=== PATIENT | male | born 1935 | race Caucasian/White ===

== ENCOUNTER → 2017-10-29 | Emergency (ER) | payer OTHER ==
[~2017-10-29] VITALS: Ht 180.3 cm; Wt 64.4 kg
[~2017-10-29] MED LIST: AMLODIPINE BESY10 MG PO; AMOX TR-K CLV 81 TAB; ASPIR 8181 MG; ASPIR 8181 MG PO; ATENOLOL25 MG; AVAPRO300 MG; AVAPRO300 MG PO; CARdura 2MG TABLET PO; CILOSTAZOL100 MG; CLOPIDOGREL BIS75 MG; GLUCOTROL10 MG; JANUVIA25 MG; NORVASC5 MG; PLAVIX75 MG; PLAVIX75 MG PO; SIMVASTATIN40 MG; SIMVASTATIN40 MG PO; TENORMIN25 MG; TOPROL XL50 M1 PO; TRAZODONE HCL100 MG; WELLBUTRIN75 MG
== END | disposition home or self-care (01) ==
LOC: ER 20:24
DX: E11.649 Type 2 diabetes mellitus with hypoglycemia without coma (principal); R20.0 Anesthesia of skin; G30.9 Alzheimer's disease, unspecified; F02.80 Dementia in other diseases classified elsewhere, unspecified severity, without behavioral disturbance, psychotic disturbance, mood disturbance, and anxiety

== ENCOUNTER 2017-10-31 08:55 | Inpatient (IN) | payer OTHER ==
[~2017-10-31] VITALS: Ht 177.8 cm; Wt 80.7 kg
[~2017-10-31 08:55] MED LIST changes: -AMLODIPINE BESY10 MG PO; -ASPIR 8181 MG PO; -AVAPRO300 MG PO; -CARdura 2MG TABLET PO; -PLAVIX75 MG PO; -SIMVASTATIN40 MG PO; -TOPROL XL50 M1 PO
[2017-11-05] MEDS ORDERED: SIMVASTATIN40 MG PO (10:03)
[2017-11-05] MEDS ORDERED: AVAPRO300 MG PO (10:03)
[2017-11-05] MEDS ORDERED: PLAVIX75 MG PO (10:03)
[2017-11-05] MEDS ORDERED: TOPROL XL50 M1 PO (10:03)
[2017-11-05] MEDS ORDERED: CARdura 2MG TABLET PO (10:03)
[2017-11-05] MEDS ORDERED: ASPIR 8181 MG PO (10:03)
[2017-11-05] MEDS ORDERED: AMLODIPINE BESY10 MG PO (10:05)
== END 2017-11-06 17:11 | DRG 64 ==
LOC: ER 08:55 → SURG 20:18 → SEC-K 20:18 → MEDI 21:27 → SURG 21:27
PROC: BW28ZZZ Computerized Tomography (CT Scan) of Head (ICD-10-PCS; 2017-10-31)
PROC: 4A12X4Z Monitoring of Cardiac Electrical Activity, External Approach (ICD-10-PCS; principal; 2017-11-01)
PROC: B246ZZZ Ultrasonography of Right and Left Heart (ICD-10-PCS; 2017-11-01)
PROC: B345ZZZ Ultrasonography of Bilateral Common Carotid Arteries (ICD-10-PCS; 2017-11-01)
PROC: B348ZZZ Ultrasonography of Bilateral Internal Carotid Arteries (ICD-10-PCS; 2017-11-01)
PROC: B030ZZZ Magnetic Resonance Imaging (MRI) of Brain (ICD-10-PCS; 2017-11-01)
PROC: B33RZZZ Magnetic Resonance Imaging (MRI) of Intracranial Arteries (ICD-10-PCS; 2017-11-02)
PROC: 4A00X4Z Measurement of Central Nervous Electrical Activity, External Approach (ICD-10-PCS; 2017-11-03)
DX: I63.031 Cerebral infarction due to thrombosis of right carotid artery (principal); G93.49 Other encephalopathy; M62.82 Rhabdomyolysis; N17.8 Other acute kidney failure; E86.0 Dehydration; I10 Essential (primary) hypertension; R55 Syncope and collapse; J32.0 Chronic maxillary sinusitis
CPT/HCPCS: 70544; 70551

== ENCOUNTER 2017-11-07 15:38 | Emergency (ER) | payer OTHER ==
[~2017-11-07] VITALS: Ht 170.2 cm; Wt 70.3 kg
[~2017-11-07 15:38] MED LIST changes: +AMLODIPINE BESY10 MG PO; +ASPIR 8181 MG PO; +AVAPRO300 MG PO; +CARdura 2MG TABLET PO; +PLAVIX75 MG PO; +SIMVASTATIN40 MG PO; +TOPROL XL50 M1 PO
== END 2017-11-07 21:59 | disposition home or self-care (01) ==
LOC: ER 15:38
DX: G81.94 Hemiplegia, unspecified affecting left nondominant side (principal); R41.0 Disorientation, unspecified

== ENCOUNTER 2017-11-10 23:04 | Inpatient (IN) | payer OTHER ==
[~2017-11-10] VITALS: Ht 175.3 cm; Wt 59.0 kg
[2017-11-27] MEDS ORDERED: DOXYCYCLINE HY100 MG PO (08:05)
[2017-11-27] MEDS ORDERED: TOPROL XL50 M1 PO ×2 (08:08→08:09)
[2017-11-27] MEDS ORDERED: ASPIR 8181 MG PO (08:18)
[2017-11-27] MEDS ORDERED: PLAVIX75 MG PO (08:18)
[2017-11-27] MEDS ORDERED: TOPROL XL50 MG PO (08:18)
[2017-11-27] MEDS ORDERED: SIMVASTATIN40 MG PO (08:18)
[2017-11-27] MEDS ORDERED: AMLODIPINE BESY10 MG PO (08:18)
== END 2017-11-27 16:43 | disposition home or self-care (01) | DRG 871 ==
LOC: ER 23:04 → MEDI 11-11 10:44 → MEDJ 11-13 11:11
PROC: 3E0F7GC Introduction of Other Therapeutic Substance into Respiratory Tract, Via Natural or Artificial Opening (ICD-10-PCS; principal; 2017-11-11)
PROC: 4A12X4Z Monitoring of Cardiac Electrical Activity, External Approach (ICD-10-PCS; 2017-11-11)
PROC: 4A033R1 Measurement of Arterial Saturation, Peripheral, Percutaneous Approach (ICD-10-PCS; 2017-11-11)
PROC: BW24ZZZ Computerized Tomography (CT Scan) of Chest and Abdomen (ICD-10-PCS; 2017-11-11)
PROC: B246ZZZ Ultrasonography of Right and Left Heart (ICD-10-PCS; 2017-11-11)
PROC: 8E0ZXY6 Isolation (ICD-10-PCS; 2017-11-13)
PROC: 05H533Z Insertion of Infusion Device into Right Subclavian Vein, Percutaneous Approach (ICD-10-PCS; 2017-11-14)
DX: A41.02 Sepsis due to Methicillin resistant Staphylococcus aureus (principal); J18.9 Pneumonia, unspecified organism; R65.21 Severe sepsis with septic shock; J90 Pleural effusion, not elsewhere classified; I69.354 Hemiplegia and hemiparesis following cerebral infarction affecting left non-dominant side; N39.0 Urinary tract infection, site not specified; B37.0 Candidal stomatitis; R09.02 Hypoxemia; Y95 Nosocomial condition; Z66 Do not resuscitate; I65.23 Occlusion and stenosis of bilateral carotid arteries; L89.620 Pressure ulcer of left heel, unstageable; L89.520 Pressure ulcer of left ankle, unstageable; L89.150 Pressure ulcer of sacral region, unstageable; L89.610 Pressure ulcer of right heel, unstageable; Z78.1 Physical restraint status